=== PATIENT | female | born 1990 | race Caucasian/White ===

== ENCOUNTER 2022-02-27 16:04 | Emergency (ER) | payer OTHER ==
[~2022-02-27 16:04] MED LIST: NORCO 5-325 TA1 EACH PO; ZOFRAN4 MG MM; ZOFRAN4 MG PO
== END 2022-02-27 19:13 | disposition home or self-care (01) ==
LOC: FER 16:04
DX: S93.401A Sprain of unspecified ligament of right ankle, initial encounter (principal); X50.1XXA Overexertion from prolonged static or awkward postures, initial encounter; Y92.009 Unspecified place in unspecified non-institutional (private) residence as the place of occurrence of the external cause
CPT/HCPCS: 73610